=== PATIENT | female | born 1975 | race Caucasian/White ===

== ENCOUNTER 2017-11-01 23:25 | Emergency (ER) | payer SELFPAY ==
[2017-11-01 23:43] VITALS: TEMP 97.9
--- NOTE | 2017-11-02 00:10 | ED PDOC ---
Arrival/HPI - General Historian: Patient, Other (friend) - History of Present Illness Time/Duration: Other (see hpi) Context: Home <Lupillo Graham - Last Filed: 11/02/17 01:30> <Rashel Salgado - Last Filed: 11/02/17 01:51> - General Chief Complaint: Pain, Chronic Time Seen by Provider: 11/02/17 00:09 - History of Present Illness Narrative History of Present Illness (Text): 11/02/17 00:09 This 42 yo female who denies pmh, presents to this ED c/o b/l lower leg pain and left upper extremity pain x 2 years. Patient stated pain worsen 6 months ago. Patient denies fever, sob, cp, abdominal pain, dizziness, palpitation, urinary symptoms or abnormal gait. Patient came with friend who was the vocational nurse (Lupillo Graahm) Past Medical History - Provider Review Nursing Documentation Reviewed: Yes - Cardiac Hx Cardiac Disorders: No - Pulmonary Hx Respiratory Disorders: No - Neurological Hx Neurological Disorder: No - HEENT Hx HEENT Disorder: No - Renal Hx Renal Disorder: No - Endocrine/Metabolic Hx Endocrine Disorders: No - Hematological/Oncological Hx Blood Disorders: No - Integumentary Hx Dermatological Disorder: No - Musculoskeletal/Rheumatological Hx Back Pain: Yes - Gastrointestinal Hx Gastrointestinal Disorders: No - Genitourinary/Gynecological Hx Genitourinary Disorders: No - Psychiatric Hx Psychophysiologic Disorder: No Hx Substance Use: No - Anesthesia Hx Anesthesia: Yes <Lupillo Graham - Last Filed: 11/02/17 01:30> Family/Social History - Physician Review Nursing Documentation Reviewed: Yes Family/Social History: Other (noncontributory) Smoking Status: Never Smoked Hx Alcohol Use: No Hx Substance Use: No <Lupillo Graham - Last Filed: 11/02/17 01:30> Allergies/Home Meds <Lupillo Graham - Last Filed: 11/02/17 01:30> <Rashel Salgado - Last Filed: 11/02/17 01:51> Allergies/Adverse Reactions: Allergies No Known Allergies Allergy (Verified 11/01/17 23:40) Review of Systems - Review of Systems Constitutional: Normal. absent: Fatigue, Weight Change, Fevers Eyes: Normal. absent: Vision Changes ENT: Normal. absent: Sore Throat Respiratory: Normal. absent: SOB, Cough Cardiovascular: Normal. absent: Chest Pain Gastrointestinal: Normal. absent: Abdominal Pain, Nausea, Vomiting Genitourinary Female: Normal. absent: Dysuria, Frequency, Hematuria Musculoskeletal: Other (see hpi) Skin: Normal. absent: Rash Neurological: Normal. absent: Headache, Dizziness, Focal Weakness, Gait Changes , Speech Changes, Facial Droop, Disequilibrium Endocrine: Normal Hemo/Lymphatic: Normal Psychiatric: Normal <Graham,Nah P - Last Filed: 11/02/17 01:30> Physical Exam Temperature: Afebrile Blood Pressure: Normal Pulse: Regular Respiratory Rate: Normal Appearance: Positive for: Well-Appearing, Non-Toxic, Comfortable Pain Distress: None Mental Status: Positive for: Alert and Oriented X 3 - Systems Exam Head: Present: Atraumatic, Normocephalic Pupils: Present: PERRL Extroacular Muscles: Present: EOMI Conjunctiva: Present: Normal Mouth: Present: Moist Mucous Membranes Neck: Present: Normal Range of Motion Respiratory/Chest: Present: Clear to Auscultation, Good Air Exchange. No: Respiratory Distress, Accessory Muscle Use Cardiovascular: Present: Regular Rate and Rhythm, Normal S1, S2. No: Murmurs Abdomen: Present: Normal Bowel Sounds. No: Tenderness, Distention, Peritoneal Signs Back: Present: Normal Inspection Upper Extremity: Present: Normal Inspection, Normal ROM, NORMAL PULSES, Neurovascularly Intact, Capillary Refill < 2s. No: Cyanosis, Edema, Tenderness , Swelling, Erythema Lower Extremity: Present: Normal Inspection, NORMAL PULSES, Normal ROM, Neurovascularly Intact, Capillary Refill < 2 s, Other ((+) varicose veins on b/ l lower leg). No: Edema, CALF TENDERNESS, Cyanosis, Cindy's Sign, Tenderness, Swelling, Erythema, Temperature Abnormalties Neurological: Present: GCS=15, CN II-XII Intact, Speech Normal, Motor Func Grossly Intact, Normal Sensory Function, Normal Cerebellar Funct, Gait Normal, Memory Normal Skin: Present: Warm, Dry, Normal Color. No: Rashes Psychiatric: Present: Alert, Oriented x 3, Normal Insight, Normal Concentration <Graham,Nahim P - Last Filed: 11/02/17 01:30> Vital Signs Temp Pulse Resp BP Pulse Ox 02/28/18 01:37 81 18 118/74 98 11/01/17 23:43 97.9 F 89 20 130/84 97 11/01/17 23:42 97.9 F 93 H 20 130/84 99 Medical Decision Making Re-evaluation Time: 01:30 Reassessment Condition: Re-examined, Improved <Lupillo Graham - Last Filed: 11/02/17 01:30> <Rashel Salgado - Last Filed: 11/02/17 01:51> ED Course and Treatment: 11/02/17 01:30 Re-evaluation. Patient feels better. Discussed results and plan with patient who expresses understanding. All questions answered and there is agreement with the plan to discharge home with instructions. Patient stable for discharge. Return if symptoms persist or worsen. (Lupillo Graham) - RAD Interpretation Radiology Orders: 11/02/17 00:10 DUPLEX LOWER EXTRM VEIN BILAT [US] Stat DUPLEX UPPER EXTRM VEIN LEFT [US] Stat 11/02/17 00:11 CHEST PORTABLE [RAD] Stat - Medication Orders Current Medication Orders: Discontinued Medications Ketorolac Tromethamine (Toradol) 60 mg IM STAT STA Stop: 11/02/17 00:13 Last Admin: 11/02/17 00:37 Dose: 60 mg [facility] Pain Assessment Document 11/02/17 00:37 MEMO (Rec: 11/02/17 00:38 [facility] Pain Reassessment Is this a pain reassessment? Yes Sleep Is patient sleeping during reassessment? No Location Left, Right or Bilateral Bilateral Pain Location Body Site Leg IM Administration Charges Document 11/02/17 00:37 MEMO (Rec: 11/02/17 00:38 [facility] Charges for Administration # of IM Administrations 1 Re-Assess: [facility] Pain Assessment Document 11/02/17 01:37 RG (Rec: 11/02/17 01:40 RG [id number]) Pain Reassessment Is this a pain reassessment? Yes Sleep Is patient sleeping during reassessment? No Presence of Pain Presence of Pain No Location Left, Right or Bilateral Bilateral Pain Location Body Site Arm Leg Description Description Constant Pain Behavior Moaning - PA / SAP DATA ANALYST / Resident Statement MD/DO has reviewed & agrees with the documentation as recorded. <Rashel Salgado - Last Filed: 11/02/17 01:51> Disposition/Present on Arrival - Present on Arrival Any Indicators Present on Arrival: No History of DVT/PE: No History of Uncontrolled Diabetes: No Urinary Catheter: No History of Decub. Ulcer: No History Surgical Site Infection Following: None - Disposition Have Diagnosis and Disposition been Completed?: Yes Disposition Time: Patient Plan: Discharge <Lupillo Graham - Last Filed: 11/02/17 01:30> <Rashel Salgado - Last Filed: 11/02/17 01:51> - Disposition Diagnosis: Arthralgia, Varicose vein of leg Disposition: HOME/ ROUTINE Condition: GOOD Discharge Instructions (ExitCare): Varicose Veins and Other Vein Disease in the Legs, Treatment of Varicose Veins of the Leg Additional Instructions: Call clinic for follow up visit. you need to apply for [facility] care. Take medication as instructed with food. Use compression stocking. Return to emergency if symptoms worsen. Prescriptions: Famotidine [Pepcid] 40 mg PO DAILY #10 tablet Naproxen 500 mg PO BID PRN #14 tablet PRN Reason: Pain, Severe (8-10) Referrals: [facility] [Outside] - Follow up with primary [facility] [Outside] - Follow up with primary Forms: [employer] ([place])
[2017-11-02 01:37] VITALS: BP 118/74; PULSE 81; RESP 18; O2SAT 98
--- NOTE | 2017-11-02 09:55 | US ---
PROCEDURE: Left upper extremity venous ultrasound HISTORY: Arm pain and swelling. Evaluate for deep venous thrombosis. PHYSICIAN(S): Mehul Levine MD. FINDINGS: The visualized leftinternal jugular vein is sonographically normal and compressible. No evidence of obstruction or thrombus is seen. The visualized segments of the left subclavian vein are patent with normal waveforms. No sonographic evidence of obstruction or thrombosis is seen. The visualized deep venous system of the proximal leftupper extremity is sonographically normal and compressible. IMPRESSION: 1. No sonographic evidence for deep venous thrombosis in the visualized segments of the left upper extremity.
--- NOTE | 2017-11-02 09:55 | US ---
HISTORY: Leg pain and swelling. Evaluate for DVT PHYSICIAN(S): Mehul Levine MD. TECHNIQUE: Duplex sonography and color-flow Doppler with graded compression were used to evaluate the deep venous systems of both lower extremities. FINDINGS: The visualized deep venous systems of both lower extremities are sonographically normal and compressible. Normal wave forms and augmentation are seen. There is no sonographic evidence for deep venous thrombosis in the visualized segments of both lower extremities. IMPRESSION: No sonographic evidence for deep venous thrombosis in the visualized segments of both lower extremities.
--- NOTE | 2017-11-02 10:11 | RAD ---
HISTORY: cough COMPARISON: No prior. FINDINGS: LUNGS: No active pulmonary disease. PLEURA: No significant pleural effusion identified, no pneumothorax apparent. CARDIOVASCULAR: Normal. OSSEOUS STRUCTURES: No significant abnormalities. VISUALIZED UPPER ABDOMEN: Normal. OTHER FINDINGS: None. IMPRESSION: No active disease.
== END 2017-11-02 02:00 | disposition home or self-care (01) ==
LOC: ED 23:25
DX: I83.93 Asymptomatic varicose veins of bilateral lower extremities (principal); M79.605 Pain in left leg; M79.604 Pain in right leg; M79.602 Pain in left arm
CPT/HCPCS: 71045; 93970; 93971; 96372; 99284; J1885